=== PATIENT | male | born 1970 | race Caucasian/White ===

== ENCOUNTER 2017-01-14 18:13 | Emergency (ER) | payer OTHER, MEDICARE ==
[2015-11-26 12:30] VITALS: BMI 22.7
[~2017-01-14 18:13] MED LIST: ALDACTONE25 MG PO; ARANELLE; CARAFATE1 G PO; COREG25 MG PO; GLIMEPIRIDE1 MG PO; HYDRALAZINE HC100 MG PO; K-DUR20 MEQ PO; LASIX20 MG PO; LISINOPRIL10 MG PO; NORCO 10/325 TA1 TA1 PO; NORVASC10 MG PO; PRINIVIL20 MG PO; TRANDATE100 MG PO
[2017-01-14 19:14] LABS: BASOPHILS 0.1 % (0.0-2.0); EOSINOPHILS 0.1 % (0-7); HEMATOCRIT 32.7 % (42.0-54.0); HEMOGLOBIN 10.9 g/dL (13.5-17.5); IMMATURE GRANULOCYTES 0.7 % (0-5); LYMPHOCYTES 2.5 % (15-50); MCH 32.6 pg (26.0-34.0); MCHC 33.3 g/dL (31.0-37.0); MCV 97.9 fL (80.0-100.0); MEAN PLATELET VOLUME 10.5 fL (7.4-10.4); MONOCYTES 5.8 % (2-11); NEUTROPHILS 90.8 % (40-80); PLATELET COUNT 247 10x3/uL (130-400); RBC 3.34 10x6/uL (4.20-6.10); RDW 13.6 % (11.5-14.5)
[2017-01-14 19:30] LABS: ALBUMIN 3.6 g/dL (3.4-5.0); ALKALINE PHOSPHATASE 94 U/L (46-116); ALT (SGPT) 20 U/L (10-68); BILIRUBIN - TOTAL 0.23 mg/dL (0.2-1.3); CALC OSMOLALITY 294 mosm/kg (275-300); CALCIUM 7.1 mg/dL (8.5-10.1); CARBON DIOXIDE 27.5 mmol/L (21.0-32.0); CHLORIDE - SERUM 100 mmol/L (98-107); CREATININE - SERUM 6.8 mg/dL (0.6-1.3); POTASSIUM - SERUM 4.1 mmol/L (3.5-5.1); PROTEIN - SERUM 7.3 g/dL (6.4-8.2); SODIUM 141 mmol/L (136-145); UREA NITROGEN 47 mg/dL (7-18); eGFR NON AFRICAN AMERICAN 9 mL/min (90-120)
[2017-01-14 19:31] LABS: GLUCOSE 139 mg/dL (74-106)
[2017-01-14 19:44] LABS: CHOL - HDL RATIO 1.2 ratio (2.3-4.9); CHOLESTEROL, TOTAL 171 mg/dL (0-200); CKMB 4.6 U/L (0.0-3.6); CREATINE KINASE 324 UL (21-232); HDL CHOLESTEROL 140 mg/dL (32-96); LDL CHOLESTEROL 25 mg/dL (0-100); LDL-HDL RATIO 0.2 ratio (1.5-3.5); PRO BNP 27044 pg/mL (0-125); TRIGLYCERIDE 34 mg/dL (30-200)
[2017-01-14 19:46] LABS: TROPONIN-I < 0.017 ng/mL (0.000-0.060)
== END 2017-01-14 22:15 | disposition home or self-care (01) ==
LOC: D.ER 18:13
PROVIDERS: Emergency Medicine
DX: R07.9 Chest pain, unspecified (principal); I12.9 Hypertensive chronic kidney disease with stage 1 through stage 4 chronic kidney disease, or unspecified chronic kidney disease; N18.9 Chronic kidney disease, unspecified; K21.9 Gastro-esophageal reflux disease without esophagitis